=== PATIENT | male | born 2000 | race Caucasian/White ===

== ENCOUNTER 2021-12-17 15:26 | Emergency (ER) | payer SELFPAY ==
[~2021-12-17] VITALS: Ht 177.8 cm; Wt 86.0 kg
[2021-12-17] MEDS ORDERED: LORAZEPAM 2MG/ML CPJ IV ONE (16:00)
[2021-12-17 16:48] LABS: BASOPHILS % 0.2 % (0.0-2.0); EOSINOPHILS % 0.7 % (0.0-5.0); HEMATOCRIT. 43.2 % (42.0-52.0); HEMOGLOBIN. 14.7 g/dL (14.0-18.0); LYMPHOCYTES % 19.9 % (20.0-50.0); MEAN CORPUSCULAR HEMOGLOBIN 32.3 pg (28.0-32.0); MEAN PLATELET VOLUME 9.7 fl (7.4-10.4); MONOCYTES % 6.1 % (2.0-8.0); NEUTROPHILS % 73.1 % (40.0-76.0); PLATELET 236 x1000/uL (130-400); RED BLOOD CELL COUNT 4.55 mill/uL (4.7-6.1); RED CELL DISTRIBUTION WIDTH 12.1 % (11.6-14.6)
[2021-12-17 17:12] LABS: CHLORIDE 100 mEq/L (98-107)
[2021-12-17 18:04] VITALS: BP 136/82
== END 2021-12-17 18:19 | disposition home or self-care (01) ==
LOC: ER 15:26
DX: R00.2 Palpitations (principal); F12.929 Cannabis use, unspecified with intoxication, unspecified
CPT/HCPCS: 36415; 80053; 84484; 85025; 96374; 99283; J2060